=== PATIENT | female | born 1950 | race Caucasian/White ===

== ENCOUNTER → 2016-08-08 | Outpatient (CLI) | payer MEDICARE ==
[~2016-08-08] MED LIST: LEVO100T PO; LISI-170 PO; SIMV10TA3 PO
[2016-08-08 13:11] LABS: BLOOD UREA NITROGEN 16 mg/dL (7-18)
[2016-08-08 13:12] LABS: ASPARTATE AMINO TRANSFERASE 3 U/L (15-37)
== END | disposition home or self-care (01) ==
LOC: LAB 10:52
PROVIDERS: ATTEND Internal Medicine
DX: Z13.220 Encounter for screening for lipoid disorders (principal); Z12.39 Encounter for other screening for malignant neoplasm of breast; E03.9 Hypothyroidism, unspecified; E78.1 Pure hyperglyceridemia; I10 Essential (primary) hypertension; F32.89 Other specified depressive episodes; L91.9 Hypertrophic disorder of the skin, unspecified; L57.0 Actinic keratosis; K21.9 Gastro-esophageal reflux disease without esophagitis; R07.9 Chest pain, unspecified; I70.0 Atherosclerosis of aorta; R55 Syncope and collapse; Z78.0 Asymptomatic menopausal state
CPT/HCPCS: 36415; 80053; 80061; 83735; 84443; 85025

== ENCOUNTER 2016-08-12 10:21 | Emergency (ER) | payer MEDICARE ==
[~2016-08-12] VITALS: Ht 157.5 cm; Wt 65.0 kg
[2016-08-12 10:31] VITALS: BP 143/90
[2016-08-12] MEDS ORDERED: LISI-170 PO (10:47)
[2016-08-12] MEDS ORDERED: SIMV10TA3 PO (10:47)
[2016-08-12] MEDS ORDERED: LEVO100T PO (10:47)
[2016-08-12] MEDS ORDERED: LIDOCAINE 1%, 20ML ONE (11:27)
[2016-08-12] MEDS ORDERED: DIPH,PERTUSS(ACELL),TET VAC/PF 0.5 ML IM-VACC ONE ×2 (11:28→11:30)
[2016-08-12] MEDS ORDERED: LIDOCAINE 1%, 20ML INFIL ONE (11:30)
== END 2016-08-12 12:35 | disposition home or self-care (01) ==
LOC: ED 11:01
DX: S61.212A Laceration without foreign body of right middle finger without damage to nail, initial encounter (principal); E78.5 Hyperlipidemia, unspecified; I10 Essential (primary) hypertension; W23.0XXA Caught, crushed, jammed, or pinched between moving objects, initial encounter; Y93.89 Activity, other specified; Y92.89 Other specified places as the place of occurrence of the external cause; Y99.8 Other external cause status
CPT/HCPCS: 12001; 90471; 90715

== ENCOUNTER 2017-03-16 15:07 | Day surgery (SDC) | payer MEDICARE ==
[2017-03-13 09:48] LABS: BLOOD UREA NITROGEN 11 mg/dL (7-18)
[2017-03-13 09:52] LABS: ASPARTATE AMINO TRANSFERASE 4 U/L (15-37)
[~2017-03-16] VITALS: Ht 160 cm; Wt 75.2 kg
[~2017-03-16 15:07] MED LIST changes: +ASPI-496 PO; +ATOR10TA9 PO; +BUPIVACAINE/PF 0.5% ONE; +CITA40TA5 PO; +EPINEPHRINE 1 MG/ML, 1ML ONE; +LEVO88TA2 PO; +LISI-167 PO; +OMEP40CA6 PO; +estroven PO
[2017-03-16 15:37] VITALS: BP 168/97
[2017-03-16] MEDS ORDERED: LACTATED RINGERS 1,000 ML IV SCH ×2 (15:40→20:30)
[2017-03-16] MEDS ORDERED: LIDOCAINE 2% 100MG/5ML SYRINGE ONE (17:00)
[2017-03-16] MEDS ORDERED: PROPOFOL 10 MG/ML, 20ML ONE ×2 (17:00→17:33)
[2017-03-16] MEDS ORDERED: SUFentanil 50 MCG/ML, 1ML ONE (17:01)
[2017-03-16] MEDS ORDERED: MIDAZOLAM 1 MG/ML, 2ML ONE (17:01)
[2017-03-16] MEDS ORDERED: ACETAMINOPHEN 325 MG TABLET PO PRN (17:30)
[2017-03-16] MEDS ORDERED: PROMETHAZINE 25 MG/ML, 1ML IV PRN (17:30)
[2017-03-16] MEDS ORDERED: hydrALAzine 20 MG/ML, 1ML IV PRN (17:30)
[2017-03-16] MEDS ORDERED: OXYcodone 5 MG/5 ML ORAL.SOL UDC PO PRN (17:30)
[2017-03-16] MEDS ORDERED: MEPERIDINE/PF 25MG/0.5ML IVPush PRN (17:30)
[2017-03-16] MEDS ORDERED: HYDROmorphone 1 MG/ML, 1ML IV PRN (17:30)
[2017-03-16] MEDS ORDERED: ONDANSETRON 2MG/ML, 2ML IVPush PRN ×2 (17:30→20:30)
[2017-03-16] MEDS ORDERED: FENTANYL PF 100 MCG/2ML IV PRN (17:30)
[2017-03-16] MEDS ORDERED: LABETALOL 5MG/ML, 20ML IV PRN (17:30)
[2017-03-16] MEDS ORDERED: GLYCOPYRROLATE 0.2MG/1ML, 5ML ONE (17:33)
[2017-03-16] MEDS ORDERED: CEFOTETAN 1 GM ONE (17:33)
[2017-03-16] MEDS ORDERED: NEOSTIGMINE 1 MG/ML, 10ML ONE (17:33)
[2017-03-16] MEDS ORDERED: KETOROLAC 30 MG/1 ML ONE (17:33)
[2017-03-16] MEDS ORDERED: ONDANSETRON 2MG/ML, 2ML ONE (17:33)
[2017-03-16] MEDS ORDERED: ROCURONIUM 10 MG/ML,10ML ONE (17:33)
[2017-03-16] MEDS ORDERED: DEXAMETHASONE 4 MG/ML, 5ML ONE (17:33)
[2017-03-16] MEDS ORDERED: BUPIVACAINE/PF-EPI 0.5% 1:200K INFIL ONE (17:56)
[2017-03-16] MEDS ORDERED: OXYcodone 5 MG/5 ML ORAL.SOL UDC ONE (18:51)
[2017-03-16] MEDS ORDERED: ACETAMINOPHEN 650 MG/20.3 ML UDC ONE (18:51)
[2017-03-16] MEDS ORDERED: MORPHINE SULFATE 4 MG/ML, 1ML IVPush PRN (20:30)
[2017-03-16] MEDS ORDERED: OXYcodone/APAP 5/325MG TABLET PO PRN (20:30)
== END 2017-03-16 21:30 | disposition home or self-care (01) ==
LOC: OR 15:07 → 4NOR 20:13 → OR 21:30
PROVIDERS: ATTEND Surgery
DX: K80.10 Calculus of gallbladder with chronic cholecystitis without obstruction (principal); I10 Essential (primary) hypertension; E78.5 Hyperlipidemia, unspecified; E03.9 Hypothyroidism, unspecified; K21.9 Gastro-esophageal reflux disease without esophagitis; Z88.1 Allergy status to other antibiotic agents; Z88.0 Allergy status to penicillin; Z98.890 Other specified postprocedural states; Z90.710 Acquired absence of both cervix and uterus
CPT/HCPCS: 36415; 47562; 80053; 88304; J0171; J1100; J1885; J2250; J2405; J2704; J2710; J3490; J7120; S0074

== ENCOUNTER → 2017-04-10 | Outpatient (CLI) | payer MEDICARE ==
[~2017-04-10] MED LIST changes: -BUPIVACAINE/PF 0.5% ONE; -EPINEPHRINE 1 MG/ML, 1ML ONE
== END ==
LOC: CFH 14:44
PROVIDERS: ATTEND Internal Medicine
DX: Z02.9 Encounter for administrative examinations, unspecified (principal)

== ENCOUNTER → 2017-11-16 | Outpatient (CLI) | payer MEDICARE ==
[2017-11-16 09:59] LABS: BASOPHILS # (AUTO) 0.01 x10^3/uL (0-0.1); BASOPHILS % (AUTO) 0 % (0-1); EOSINOPHILS % (AUTO) 0 % (1-7); LYMPHOCYTES # (AUTO) 2.06 x10^3/uL (1-3.4); LYMPHOCYTES % (AUTO) 36 % (22-44); MD NO; MEAN CORPUSCULAR HEMOGLOBIN 28.9 pg (27.0-34.8); MEAN CORPUSCULAR HGB CONC 34.3 g/dL (32.4-35.8); MEAN CORPUSCULAR VOLUME 84.2 fL (80-100); MEAN PLATELET VOLUME 8.5 fL (7.4-10.4); MONOCYTES # (AUTO) 0.48 x10^3/uL (0.2-0.8); MONOCYTES % (AUTO) 8 % (2-9); NEUTROPHILS # (AUTO) 3.23 x10^3/uL (1.8-6.8); NEUTROPHILS % (AUTO) 56 % (42-75); PLATELET COUNT 255 x10^3/uL (130-400); RED BLOOD COUNT 5.12 x10^6/uL (3.82-5.3); RED CELL DISTRIBUTION WIDTH 13.9 % (9.6-15.2)
[2017-11-16 10:00] LABS: ALANINE AMINOTRANSFERASE 44 U/L (12-78); ALBUMIN 3.9 g/dL (3.4-5.0); ANION GAP 6 mmol/L (5-15); CALCIUM 8.9 mg/dL (8.5-10.1); CHLORIDE 107 mmol/L (98-107); CREATININE 0.76 mg/dL (0.55-1.02)
[2017-11-16 10:11] LABS: ALKALINE PHOSPHATASE 113 U/L (45-117); BILIRUBIN,TOTAL 0.5 mg/dL (0.2-1.0); CHOLESTEROL, TOTAL 131 mg/dL (140-239); HDL CHOL % 33 % (28-40); HDL CHOLESTEROL (DIRECT) 43 mg/dL (40-60); LDL CHOLESTEROL,CALCULATED 63 mg/dL (54-169); LDL/HDL RATIO 1.5 (0.5-3.0); TOTAL PROTEIN 7.8 g/dL (6.4-8.2); TRIGLYCERIDES 126 mg/dL (50-200); VLDL CHOLESTEROL 25 mg/dL (0-25)
[2017-11-17 14:51] LABS: CLOSTRIDIUM DIFFICILE ANTIGEN NEGATIVE; CLOSTRIDIUM DIFFICILE TOXIN NEGATIVE (Negative)
== END | disposition home or self-care (01) ==
LOC: LAB 09:12
PROVIDERS: ATTEND Internal Medicine
DX: Z13.220 Encounter for screening for lipoid disorders (principal); Z12.39 Encounter for other screening for malignant neoplasm of breast; I10 Essential (primary) hypertension; I70.0 Atherosclerosis of aorta; E03.9 Hypothyroidism, unspecified; E78.1 Pure hyperglyceridemia; L57.0 Actinic keratosis; K21.9 Gastro-esophageal reflux disease without esophagitis; Z78.0 Asymptomatic menopausal state; Z88.0 Allergy status to penicillin
CPT/HCPCS: 36415; 80053; 80061; 84443; 85025; 87324

== ENCOUNTER 2017-12-13 18:47 | Emergency (ER) | payer MEDICARE ==
[~2017-12-13] VITALS: Ht 157.5 cm; Wt 77.5 kg
[2017-12-13 18:50] VITALS: BP 180/102
[2017-12-13] MEDS ORDERED: FLUORESCEIN/BENOXINATE 5 ML DROPS OP ONE (19:00)
[2017-12-13] MEDS ORDERED: PROPARACAINE OPHTH 0.5%, 15ML EACHEYE ONE (19:00)
[2017-12-13] MEDS ORDERED: PROPARACAINE OPHTH 0.5%, 15ML ONE (19:03)
== END 2017-12-13 23:18 | disposition home or self-care (01) ==
LOC: ED 20:05
DX: H15.102 Unspecified episcleritis, left eye (principal); Z88.1 Allergy status to other antibiotic agents; Z88.0 Allergy status to penicillin; E78.5 Hyperlipidemia, unspecified; E78.00 Pure hypercholesterolemia, unspecified; I10 Essential (primary) hypertension; E07.9 Disorder of thyroid, unspecified
CPT/HCPCS: 99283

== ENCOUNTER → 2018-05-23 | Outpatient (CLI) | payer MEDICARE ==
[2018-05-23 12:29] LABS: BASOPHILS # (AUTO) 0.01 x10^3/uL (0-0.1); BASOPHILS % (AUTO) 0 % (0-1); EOSINOPHILS % (AUTO) 0 % (1-7); LYMPHOCYTES # (AUTO) 1.71 x10^3/uL (1-3.4); LYMPHOCYTES % (AUTO) 35 % (22-44); MD NO; MEAN CORPUSCULAR HEMOGLOBIN 27.7 pg (27.0-34.8); MEAN CORPUSCULAR HGB CONC 32.9 g/dL (32.4-35.8); MEAN CORPUSCULAR VOLUME 84.1 fL (80-100); MEAN PLATELET VOLUME 8.5 fL (7.4-10.4); MONOCYTES # (AUTO) 0.33 x10^3/uL (0.2-0.8); MONOCYTES % (AUTO) 7 % (2-9); NEUTROPHILS # (AUTO) 2.85 x10^3/uL (1.8-6.8); NEUTROPHILS % (AUTO) 58 % (42-75); PLATELET COUNT 256 x10^3/uL (130-400); RED BLOOD COUNT 5.08 x10^6/uL (3.82-5.3); RED CELL DISTRIBUTION WIDTH 13.9 % (9.6-15.2)
[2018-05-23 12:48] LABS: ANION GAP 6 mmol/L (5-15); CALCIUM 8.9 mg/dL (8.5-10.1); CHLORIDE 105 mmol/L (98-107)
[2018-05-23 13:02] LABS: ALANINE AMINOTRANSFERASE 51 U/L (12-78); ALKALINE PHOSPHATASE 112 U/L (45-117); BILIRUBIN,TOTAL 0.7 mg/dL (0.2-1.0); CHOL/HDL RATIO 3.3; CHOLESTEROL, TOTAL 139 mg/dL (140-239); CREATININE 0.93 mg/dL (0.55-1.02); HDL CHOL % 30 % (28-40); HDL CHOLESTEROL (DIRECT) 42 mg/dL (40-60); LDL CHOLESTEROL,CALCULATED 74 mg/dL (54-169); LDL/HDL RATIO 1.8 (0.5-3.0); TOTAL PROTEIN 7.7 g/dL (6.4-8.2); TRIGLYCERIDES 114 mg/dL (50-200); VLDL CHOLESTEROL 23 mg/dL (0-25)
== END | disposition home or self-care (01) ==
LOC: CFH 09:45
PROVIDERS: ATTEND Internal Medicine
DX: Z12.39 Encounter for other screening for malignant neoplasm of breast (principal); Z13.220 Encounter for screening for lipoid disorders; E03.9 Hypothyroidism, unspecified; E78.1 Pure hyperglyceridemia; I10 Essential (primary) hypertension; L91.9 Hypertrophic disorder of the skin, unspecified; L57.0 Actinic keratosis; K21.9 Gastro-esophageal reflux disease without esophagitis; R07.9 Chest pain, unspecified; I70.0 Atherosclerosis of aorta; R55 Syncope and collapse; R10.84 Generalized abdominal pain; G47.19 Other hypersomnia; F32.9 Major depressive disorder, single episode, unspecified; Z78.0 Asymptomatic menopausal state
CPT/HCPCS: 36415; 80053; 80061; 84443; 85025

== ENCOUNTER 2019-02-26 10:05 | Outpatient (CLI) | payer MEDICARE ==
[~2019-02-26 10:05] MED LIST changes: +OMEP40CA42 PO; -OMEP40CA6 PO
[2019-02-26 14:08] LABS: BASOPHILS # (AUTO) 0.01 x10^3/uL (0-0.1); BASOPHILS % (AUTO) 0 % (0-1); EOSINOPHILS % (AUTO) 0 % (1-7); LYMPHOCYTES # (AUTO) 1.94 x10^3/uL (1-3.4); LYMPHOCYTES % (AUTO) 38 % (22-44); MD NO; MEAN CORPUSCULAR HEMOGLOBIN 28.1 pg (27.0-34.8); MEAN CORPUSCULAR HGB CONC 32.8 g/dL (32.4-35.8); MEAN CORPUSCULAR VOLUME 85.6 fL (80-100); MEAN PLATELET VOLUME 8.4 fL (7.4-10.4); MONOCYTES # (AUTO) 0.35 x10^3/uL (0.2-0.8); MONOCYTES % (AUTO) 7 % (2-9); NEUTROPHILS # (AUTO) 2.78 x10^3/uL (1.8-6.8); NEUTROPHILS % (AUTO) 55 % (42-75); PLATELET COUNT 256 x10^3/uL (130-400); RED BLOOD COUNT 5.12 x10^6/uL (3.82-5.3); RED CELL DISTRIBUTION WIDTH 14.3 % (9.6-15.2)
[2019-02-26 14:54] LABS: ALBUMIN 4.1 g/dL (3.4-5.0); ANION GAP 6 mmol/L (5-15); CALCIUM 9.4 mg/dL (8.5-10.1); CHLORIDE 105 mmol/L (98-107)
[2019-02-26 15:06] LABS: ALANINE AMINOTRANSFERASE 35 U/L (12-78); ALKALINE PHOSPHATASE 103 U/L (45-117); BILIRUBIN,TOTAL 0.6 mg/dL (0.2-1.0); CHOLESTEROL, TOTAL 138 mg/dL (140-239); CREATININE 0.87 mg/dL (0.55-1.02); HDL CHOL % 33 % (28-40); HDL CHOLESTEROL (DIRECT) 46 mg/dL (40-60); LDL CHOLESTEROL,CALCULATED 78 mg/dL (54-169); LDL/HDL RATIO 1.7 (0.5-3.0); TOTAL PROTEIN 7.9 g/dL (6.4-8.2); TRIGLYCERIDES 72 mg/dL (50-200); VLDL CHOLESTEROL 14 mg/dL (0-25)
== END 2019-02-26 23:59 | disposition home or self-care (01) ==
LOC: CFH 10:05
PROVIDERS: ATTEND Internal Medicine
DX: E03.9 Hypothyroidism, unspecified (principal); E78.1 Pure hyperglyceridemia; I10 Essential (primary) hypertension; L91.8 Other hypertrophic disorders of the skin; L57.0 Actinic keratosis; K21.9 Gastro-esophageal reflux disease without esophagitis; R07.9 Chest pain, unspecified; I70.0 Atherosclerosis of aorta; R55 Syncope and collapse; R10.84 Generalized abdominal pain; R19.7 Diarrhea, unspecified; G47.19 Other hypersomnia; H81.10 Benign paroxysmal vertigo, unspecified ear; F32.89 Other specified depressive episodes
CPT/HCPCS: 36415; 80053; 80061; 84443; 85025

== ENCOUNTER → 2019-12-05 | Outpatient (CLI) | payer MEDICARE ==
[~2019-12-05] MED LIST changes: +SIMV10TA18 PO; -SIMV10TA3 PO
[2019-12-05 12:56] LABS: CALCIUM 9.3 mg/dL (8.5-10.1); CHLORIDE 108 mmol/L (98-107)
[2019-12-05 13:11] LABS: ALANINE AMINOTRANSFERASE 25 U/L (12-78); ALBUMIN 3.9 g/dL (3.4-5.0); ALKALINE PHOSPHATASE 98 U/L (45-117); ANION GAP 4 mmol/L (5-15); BILIRUBIN,TOTAL 0.5 mg/dL (0.2-1.0); CHOLESTEROL, TOTAL 139 mg/dL (140-239); CREATININE 0.78 mg/dL (0.55-1.02); HDL CHOL % 33 % (28-40); HDL CHOLESTEROL (DIRECT) 46 mg/dL (40-60); LDL CHOLESTEROL,CALCULATED 72 mg/dL (54-169); LDL/HDL RATIO 1.6 (0.5-3.0); TOTAL PROTEIN 7.7 g/dL (6.4-8.2); TRIGLYCERIDES 104 mg/dL (50-200); VLDL CHOLESTEROL 21 mg/dL (0-25)
== END | disposition home or self-care (01) ==
LOC: CFH 10:26
PROVIDERS: ATTEND Internal Medicine
DX: Z13.220 Encounter for screening for lipoid disorders (principal); E03.9 Hypothyroidism, unspecified; E78.1 Pure hyperglyceridemia; I10 Essential (primary) hypertension; K21.9 Gastro-esophageal reflux disease without esophagitis; R07.9 Chest pain, unspecified; I70.0 Atherosclerosis of aorta; R55 Syncope and collapse; R19.7 Diarrhea, unspecified; Z78.0 Asymptomatic menopausal state
CPT/HCPCS: 36415; 80053; 80061; 84443